=== PATIENT | male | born 1980 ===

== ENCOUNTER 2021-03-22 10:00 | Day surgery (SDC) | payer OTHER ==
[2021-03-22] MEDS ORDERED: COLACE100 MG PO (20:42)
[2021-03-22] MEDS ORDERED: PERCOCET 5-3251 EACH PO (20:42)
== END 2021-03-23 08:35 | disposition home or self-care (01) ==
LOC: CIR.AMB 10:00
PROVIDERS: ATTEND Surgery
DX: K60.1 Chronic anal fissure (principal); K62.4 Stenosis of anus and rectum; Z20.822 Contact with and (suspected) exposure to COVID-19